=== PATIENT | female | born 1995 | race Caucasian/White ===

== ENCOUNTER → 2017-03-03 | Outpatient (CLI) | payer BC ==
[~2017-03-03] MED LIST: ZITHROMAX200 MG/5 M PO; ZOFRAN ODT4 MG PO
--- NOTE | ~2017-03-03 | NM22 ---
[facility] A Service of [facility] & [facility] RADIOLOGY TEXT RESULTS PATIENT: NAVI REGALADO LOCATION: [facility] : [birth year] UNIT #: [id number] AGE: [address]: Moises Renteria MD SEX: F ORDER DR: [id number] [facility] [address] [place], [place] [address] [id number] O MR#: [id number] Acc #: [id number] NAME: NAVI REGALADO : 1995 SEX: F STUDY DATE/TIME: 03/03/2017 10:07 UNIT: [facility] ROOM: STUDY DESCRIPTION: NM Hepatobiliary W GB Pharm Attending Physician: Moises Renteria M.D. Referring Physician: Moises Renteria M.D. Ordering Physician: Moises Renteria M.D. Primary Care Physician: Surjit Reyes M.D. MEDICAL IMAGING REPORT This report is preliminary unless electronic signature is present EXAM HIDA scan with Kinevac CCK 03/03/2017 HISTORY Nausea and dyspepsia for 2 months, single episode of vomiting and diarrhea and abdominal cramping. FINDINGS The patient received an intravenous injection of 5.05 mCi of technetium 99m tagged Choletec for hepatobiliary imaging. 1 hour following the injection of the radiopharmaceutical the patient received an intravenous injection of 1.2 mcg of Kinevac. There is homogeneous distribution of the radiotracer throughout the liver. Gallbladder activity was seen by 30 minutes postinjection. Following Kinevac injection the gallbladder ejection fraction was 48.5% (normal is greater than 30%). IMPRESSION Normal HIDA scan with gallbladder ejection fraction of 48.5%. Dictated by... Yordy Puckett M.D. THIS IS AN ELECTRONICALLY VERIFIED REPORT Yordy Puckett M.D. at 03/04/2017 2:10 PM MUSHTAQ/nichole TD: 03/03/2017 16:51 JOB #: [id number] MEDICAL IMAGING REPORT Page 1 of 1 COPY
== END | disposition home or self-care (01) ==
LOC: CNUC 02-20 09:30
DX: R10.13 Epigastric pain (principal); R11.0 Nausea
CPT/HCPCS: 78227; A9537; J2805